=== PATIENT | female | born 1945 | race Caucasian/White ===

== ENCOUNTER 2017-11-26 02:47 | Emergency (ER) | payer MEDICARE, OTHER ==
[~2017-11-26] VITALS: Ht 142.2 cm; Wt 77.3 kg
[~2017-11-26 02:47] MED LIST: AMLO2.5T PO; ATOR40TA28 PO; CLOP75 PO; GLIP5 PO; HYDR25TA84 PO; LEVO500 PO; METO50 PO; SITA50 PO
[2017-11-26] MEDS ORDERED: FURO40 PO (03:05)
[2017-11-26] MEDS ORDERED: HYDR-2924 PO (03:05)
[2017-11-26] MEDS ORDERED: ASPI-556 PO (03:05)
[2017-11-26] MEDS ORDERED: LOSA50TA37 PO (03:05)
[2017-11-26] MEDS ORDERED: SODI325T PO (03:05)
[2017-11-26] MEDS ORDERED: BACI1TAB3 PO (03:05)
[2017-11-26] MEDS ORDERED: VERA120 PO (03:05)
[2017-11-26 03:47] VITALS: BP 155/74
[2017-11-26] MEDS ORDERED: LIDOCAINE HCL 5% TRANSDERMAL PATCH TP ONE (04:15)
[2017-11-26] MEDS ORDERED: ACYCLOVIR 200 MG CAPSULE PO ONE (04:15)
[2017-11-26] MEDS ORDERED: PredniSONE 20 MG TABLET PO ONE (04:15)
[2017-11-26] MEDS ORDERED: HYDROCODONE/ACETAMINOPHEN 5-325 MG TABLET PO ONE (04:15)
== END 2017-11-26 04:42 | disposition home or self-care (01) ==
LOC: EMS 02:47
DX: B02.9 Zoster without complications (principal); M54.9 Dorsalgia, unspecified; R07.9 Chest pain, unspecified; I11.0 Hypertensive heart disease with heart failure; I50.9 Heart failure, unspecified; E11.9 Type 2 diabetes mellitus without complications; E78.00 Pure hypercholesterolemia, unspecified; Z86.73 Personal history of transient ischemic attack (TIA), and cerebral infarction without residual deficits; Z88.0 Allergy status to penicillin
CPT/HCPCS: 99284; J7512

== ENCOUNTER 2019-03-06 06:04 | Day surgery (SDC) | payer MEDICARE, OTHER ==
[~2019-03-06] VITALS: Ht 149.9 cm; Wt 66.4 kg
[~2019-03-06 06:04] MED LIST changes: -AMLO2.5T PO; +ASPI-556 PO; +BACI1TAB3 PO; -CLOP75 PO; +CYCLOPENTOLATE HCL 1% 2 ML OPHTHALMIC SOLUTION ONE; +FLURBIPROFEN SODIUM 0.03% 2.5 ML OPHTHALMIC SOLUTION ONE; +FURO40 PO; -GLIP5 PO; +HYDR-2924 PO; -HYDR25TA84 PO; -LEVO500 PO; +LOSA50TA64 PO; +OFLOXACIN 0.3% 5 ML OPHTHALMIC SOLUTION ONE; +PHENYLEPHRINE HCL 2.5% 2 ML OPHTHALMIC SOLUTION ONE; +RINGERS SOLUTION,LACTATED 0 ML IV ONE; +RINGERS SOLUTION,LACTATED 500 ML IV ONE; -SITA50 PO; +SODI325T PO; +TETRACAINE HCL/PF 0.5% 4 ML OPHTHALMIC SOLUTION ONE; +TROPICAMIDE 1% 2 ML OPHTHALMIC SOLUTION ONE; +VERA120 PO
[2019-03-06] MEDS ORDERED: MIDAZOLAM HCL 2 MG/2 ML VIAL IVP ONE (06:05)
[2019-03-06] MEDS ORDERED: FentaNYL CITRATE-PF 100 MCG/2 ML VIAL IVP ONE (06:05)
[2019-03-06] MEDS ORDERED: SODIUM CHLORIDE 0.9% 500 ML IV ONE ×2 (06:16→07:00)
[2019-03-06] MEDS ORDERED: TETRACAINE HCL/PF 0.5% 4 ML OPHTHALMIC SOLUTION OD ONE (06:30)
[2019-03-06] MEDS ORDERED: CYCLOPENTOLATE HCL 1% 2 ML OPHTHALMIC SOLUTION ONE (06:38)
[2019-03-06] MEDS: PHENYLEPHRINE HCL 2.5% 2 ML OPHTHALMIC SOLUTION OD SCH ×3 (06:40→07:07)
[2019-03-06] MEDS: OFLOXACIN 0.3% 5 ML OPHTHALMIC SOLUTION OD SCH ×3 (06:40→07:07)
[2019-03-06] MEDS: TROPICAMIDE 1% 2 ML OPHTHALMIC SOLUTION OD SCH ×3 (06:40→07:07)
[2019-03-06] MEDS: FLURBIPROFEN SODIUM 0.03% 2.5 ML OPHTHALMIC SOLUTION OD SCH ×3 (06:40→07:07)
[2019-03-06] MEDS: CYCLOPENTOLATE HCL 1% 2 ML OPHTHALMIC SOLUTION OD SCH ×3 (06:40→07:07)
[2019-03-06 06:54] LABS: GLUCOMETER DEV NAME(LOC) SDS.; GLUCOSE,POINT OF CARE 90 MG/DL (70-110)
[2019-03-06] MEDS ORDERED: [UNRECOGNIZED DRUG - CODE] PO (07:01)
[2019-03-06] MEDS ORDERED: LISI-660 PO (07:01)
[2019-03-06] MEDS ORDERED: VITA-300 PO (07:01)
[2019-03-06] MEDS ORDERED: ALLO100T PO (07:01)
[2019-03-06] MEDS ORDERED: ACETAMINOPHEN 325 MG TABLET ONE (08:44)
[2019-03-06] MEDS ORDERED: ACETAMINOPHEN 325 MG TABLET PO ONE (09:15)
[2019-03-06] MEDS ORDERED: EPINEPHrine 1:1,000 [1 MG/ML] AMP ONE (18:31)
[2019-03-06] MEDS ORDERED: POVIDONE-IODINE 10% 15 ML SOLUTION UD ONE (18:31)
[2019-03-06] MEDS ORDERED: HYALURONATE SODIUM 12 MG/ML 0.8 ML SYRINGE IO ONE (18:31)
[2019-03-06] MEDS ORDERED: HYALURONATE SOD/CHONDROITIN SOD 0.5 ML VIAL IO ONE (18:31)
[2019-03-06] MEDS ORDERED: LIDOCAINE 1% 20 ML VIAL *UNAVILABLE ONE (18:31)
== END 2019-03-06 09:10 | disposition home or self-care (01) ==
LOC: SURGERY 06:04
PROVIDERS: ATTEND Ophthalmology
DX: E11.36 Type 2 diabetes mellitus with diabetic cataract (principal); H25.11 Age-related nuclear cataract, right eye; I10 Essential (primary) hypertension; E78.00 Pure hypercholesterolemia, unspecified; Z87.01 Personal history of pneumonia (recurrent); Z86.73 Personal history of transient ischemic attack (TIA), and cerebral infarction without residual deficits; Z88.8 Allergy status to other drugs, medicaments and biological substances; Z79.899 Other long term (current) drug therapy; Z79.82 Long term (current) use of aspirin; Z95.5 Presence of coronary angioplasty implant and graft; Z98.890 Other specified postprocedural states
CPT/HCPCS: 66984; 82962; 93005; C1780; J0171; J2250; J3010; J3490 ×2; J7040; J7120